=== PATIENT | male | born 1985 | race African-American/Black ===

== ENCOUNTER 2019-08-14 15:09 | Emergency (ER) | payer OTHER ==
[~2019-08-14] VITALS: Ht 185.4 cm; Wt 107.0 kg
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
[2019-08-14] MEDS ORDERED: LIDOCAINE-MPF 1%, 5ML INFIL ONE (15:30)
[2019-08-14] MEDS ORDERED: SODIUM CHLORIDE FLUSH 10ML SYR IVF ONE (15:30)
[2019-08-14 15:48] LABS: BASOPHILS # (AUTO) 0.02 x10^3/uL (0-0.1); BASOPHILS % (AUTO) 0 % (0-1); EOSINOPHILS # (AUTO) 0.01 x10^3/uL (0-0.4); EOSINOPHILS % (AUTO) 0 % (1-7); LYMPHOCYTES # (AUTO) 1.97 x10^3/uL (1-3.4); LYMPHOCYTES % (AUTO) 36 % (22-44); MD NO; MEAN CORPUSCULAR HEMOGLOBIN 27.7 pg (27.5-34.5); MEAN CORPUSCULAR HGB CONC 32.6 g/dL (33.2-36.2); MEAN CORPUSCULAR VOLUME 84.8 fL (81-97); MEAN PLATELET VOLUME 8.6 fL (7.4-10.4); MONOCYTES # (AUTO) 0.37 x10^3/uL (0.2-0.8); MONOCYTES % (AUTO) 7 % (2-9); NEUTROPHILS # (AUTO) 3.15 x10^3/uL (1.8-6.8); NEUTROPHILS % (AUTO) 57 % (42-75); PLATELET COUNT 211 x10^3/uL (130-400); RED BLOOD COUNT 4.92 x10^6/uL (4.38-5.82); RED CELL DISTRIBUTION WIDTH 13.3 % (9.4-14.8)
[2019-08-14 15:54] LABS: ALBUMIN 3.7 g/dL (3.4-5.0); ANION GAP 11 mmol/L (5-15); CALCIUM 8.6 mg/dL (8.5-10.1); CHLORIDE 103 mmol/L (98-107); CREATININE 1.66 mg/dL (0.7-1.3)
[2019-08-14 15:57] LABS: TROPONIN I < 0.015 ng/mL (0.000-0.045)
[2019-08-14] MEDS ORDERED: ACETAMINOPHEN 500 MG TABLET PO ONE (16:00)
[2019-08-14] MEDS ORDERED: ACETAMINOPHEN 500 MG TABLET ONE (16:00)
--- NOTE | 2019-08-14 16:04 | NUR ---
BREAK RN: PT MEDICATED ORDERED. SR PER MONITOR. AUTO BP AND PULSE OX IN PLACE. PT DENIES NEEDS AT THIS TIME.
[2019-08-14] MEDS ORDERED: LIDOCAINE-MPF 1%, 5ML ONE ×2 (16:13→16:14)
--- NOTE | 2019-08-14 17:30 | NUR ---
SEGUN REDDY AT BEDSIDE FOR LAC REPAIR. PT CURRENTLY RESTING ON [employer]. FRIEND AT BEDSIDE. PT AO X 4. SKIN WARM AND DRY. RESP EVEN AND UNLABORED. NO ACUTE DISTRESS NOTED. PT ON CONT BP, CARDIAC AND SPO2 MONITORS. CALL LIGHT WITHIN REACH. WILL CONT TO MONITOR PT.
[2019-08-14 18:23] LABS: TROPONIN I < 0.015 ng/mL (0.000-0.045)
--- NOTE | 2019-08-14 18:45 | NUR ---
PT CURRENTLY RESTING ON GURNEY. NAD NOTED. SKIN WARM AND DRY. RESP EVEN AND UNLABORED. PT AO X 4. PERRLA. PT AWARE WE ARE WAITING ON RECHECK BY LEONOR. CALL LIGHT JEAN CLAUDE SMART. WILL CONT TO MONITOR PT.
--- NOTE | 2019-08-14 18:53 | NUR ---
PIERO DEE (SOPHIA) AND HEATH ASSISTED WITH LAC REPAIR
[2019-08-14 19:35] VITALS: BP 121/53
== END 2019-08-14 19:37 | disposition home or self-care (01) ==
LOC: ED 18:47
DX: S02.5XXA Fracture of tooth (traumatic), initial encounter for closed fracture (principal); S01.511A Laceration without foreign body of lip, initial encounter; R55 Syncope and collapse; I10 Essential (primary) hypertension; W01.0XXA Fall on same level from slipping, tripping and stumbling without subsequent striking against object, initial encounter; Y93.89 Activity, other specified; Y92.89 Other specified places as the place of occurrence of the external cause; Y99.8 Other external cause status
CPT/HCPCS: 36415; 40650; 71045; 80048; 82040; 84484; 85025; 85379; 93005; 99285